=== PATIENT | female | born 1970 | race Caucasian/White ===

== ENCOUNTER 2017-11-11 02:24 | Emergency (ER) | payer MEDICARE ==
[2017-11-11 03:22] LABS: Appearance,Urine Clear (Clear); Bilirubin,Urine Negative (Negative); Blood,Urine Moderate (Negative); Color,Urine Colorless; Glucose,Urine (UA) Negative (Negative); Ketones,Urine Negative (Negative); Leukocyte Esterase,Urine Trace (Negative); Nitrite,Urine Negative (Negative); Protein,Urine Negative (Negative); RBC,Urine <1 /hpf (0-5); Specific Gravity,Urine 1.002 (1.001-1.035); Squamous Epithelial Cell,Urine <1 /hpf (0-4); Urobilinogen,Urine <2.0 mg/dL (<2.0); WBC,Urine 1 /hpf (0-5)
[2017-11-11 03:32] VITALS: BP 118/59; PULSE 85; RESP 16; TEMP 98.2
--- NOTE | 2017-11-11 03:47 | ED ---
General Adult HPI - General Chief complaint: Back Pain/Injury Stated complaint: Back Pain Time Seen by Provider: 11/11/17 02:30 Source: patient, family Mode of arrival: ambulatory Limitations: no limitations - History of Present Illness Initial comments: 47-year-old female patient presents to the emergency department today for evaluation of vaginal bleeding. Patient states that a few hours ago she felt a pain in her right lower back, immediately felt like she had to urinate, and went to the bathroom and noticed clots in the toilet. Patient states that she has been having intermittent spotting since 10/29/2017. Patient states that this is when her normal period was supposed to start however she did not have bleeding like normal. She states she has been having intermittent suprapubic cramping with this. Patient has had tubal ligation. Denies any chance of . She denies any constipation or diarrhea. Denies any nausea or vomiting. Denies any fevers or chills. She denies any dysuria, urinary frequency, urinary urgency. States that she has had kidney stones in the past but the pain felt different. She denies any current back pain. Patient denies any recent rash, shortness breath, chest pain, diarrhea, constipation, back pain , numbness, tingling, dizziness, weakness, headache, visual changes, or any other complaints. - Related Data Home Medications Medication Instructions Recorded Confirmed Acetaminophen [Tylenol] 325 mg PO Q4H PRN 08/01/15 11/11/17 Divalproex [Depakote] 500 mg PO BID 08/01/15 11/11/17 Naproxen 500 mg PO BID PRN 08/01/15 11/11/17 busPIRone HCl [Buspar] 5 mg PO TID 08/01/15 11/11/17 Omeprazole [PriLOSEC] 20 mg PO Q48H 08/02/15 11/11/17 diphenhydrAMINE [Benadryl] 50 mg PO QID PRN 08/02/15 11/11/17 Allergies Allergy/AdvReac Type Severity Reaction Status Date / Time codeine AdvReac Itching Verified 11/11/17 02:29 Penicillins AdvReac Nausea & Verified 11/11/17 02:29 Vomiting Review of Systems ROS Statement: Those systems with pertinent positive or pertinent negative responses have been documented in the HPI. ROS Other: All systems not noted in ROS Statement are negative. Past Medical History Past Medical History: COPD, GERD/Reflux, Hypertension, Neurologic Disorder, Osteoarthritis (OA), Seizure Disorder Additional Past Medical History / Comment(s): suicidal tendencies, organic brain syndrome, memory loss History of Any Multi-Drug Resistant Organisms: None Reported Past Surgical History: Orthopedic Surgery, Tonsillectomy Additional Past Surgical History / Comment(s): bilat knee arthroscopy 2009 and 2010 Past Anesthesia/Blood Transfusion Reactions: No Reported Reaction Past Psychological History: Anxiety, Bipolar, Depression, Panic Disorder Smoking Status: Current every day smoker Past Alcohol Use History: Abuse Past Drug Use History: None Reported - Past Family History Mother Family Medical History: Coronary Artery Disease (CAD) Father Family Medical History: Cancer General Exam Limitations: no limitations General appearance: alert, in no apparent distress, other (This is a well- developed, well-nourished adult female patient in no acute distress. Vital signs upon presentation are temperature 97.3F, pulse 99, respirations 20, blood pressure 135/86, pulse ox 98% on room air.) Eye exam: Present: normal appearance, PERRL, EOMI. Absent: scleral icterus, conjunctival injection, periorbital swelling ENT exam: Present: normal exam, normal oropharynx, mucous membranes moist Respiratory exam: Present: normal lung sounds bilaterally. Absent: respiratory distress, wheezes, rales, rhonchi, stridor Cardiovascular Exam: Present: regular rate, normal rhythm, normal heart sounds. Absent: systolic murmur, diastolic murmur, rubs, gallop, clicks GI/Abdominal exam: Present: soft, normal bowel sounds. Absent: distended, tenderness, guarding, rebound, rigid External exam: Present: normal external exam Speculum exam: Present: vaginal bleeding (Slight vaginal bleeding). Absent: erythema, tissue, laceration By manual exam: Present: normal by manual exam Back exam: Present: normal inspection Neurological exam: Present: alert, oriented X3, CN II-XII intact Psychiatric exam: Present: normal affect, normal mood Skin exam: Present: warm, dry, intact, normal color. Absent: rash Course Vital Signs 11/11/17 11/11/17 02:24 03:30 Temperature 97.3 F L 98.2 F Pulse Rate 99 85 Respiratory 20 16 Rate Blood Pressure 135/86 118/59 O2 Sat by Pulse 98 96 Oximetry Medical Decision Making - Medical Decision Making 47-year-old female patient, premenopausal presents to the emergency department today for complaints of vaginal spotting and lower back pain. Physical examination is unremarkable. Pelvic examination does reveal slight vaginal bleeding. Bimanual exam is normal. Urinalysis shows no evidence of infection. HCG is negative. Did discuss findings and results with the patient. She is instructed to follow-up with her primary care physician for recheck in 1-2 days. She does to discuss possible ultrasound or further testing to rule out menopause versus other etiologies. Return parameters were discussed in detail. She verbalizes understanding and agrees with this plan. - Lab Data Lab Results 11/11/17 11/11/17 Range/Units 03:08 03:08 Urine Color Colorless Urine Appearance Clear (Clear) Urine pH 5.0 (5.0-8.0) Ur Specific [place] 1.002 (1.001-1.035) Urine Protein Negative (Negative) Urine Glucose (UA) Negative (Negative) Urine Ketones Negative (Negative) Urine Blood Moderate H (Negative) Urine Nitrite Negative (Negative) Urine Bilirubin Negative (Negative) Urine Urobilinogen <2.0 (<2.0) mg/dL Ur Leukocyte Esterase Trace H (Negative) Urine RBC <1 (0-5) /hpf Urine WBC 1 (0-5) /hpf Ur Squamous Epith Cells <1 (0-4) /hpf Urine HCG, Qual Not Detected (Not Detectd) Disposition Clinical Impression: Dysfunctional uterine bleeding Disposition: HOME SELF-CARE Condition: Good Instructions: Dysfunctional Uterine Bleeding (ED) Additional Instructions: Follow-up with her primary care physician for recheck as soon as possible, discuss pelvic ultrasound. Return here immediately for any new, worsening, or concerning symptoms per Is patient prescribed a controlled substance at d/c from ED?: No Referrals: Gigi Garcia MD [Primary Care Provider] - 1-2 days Time of Disposition: 03:47
== END 2017-11-11 04:06 | disposition home or self-care (01) ==
LOC: EC 02:24
DX: N93.8 Other specified abnormal uterine and vaginal bleeding (principal); M54.5 Low back pain; K21.9 Gastro-esophageal reflux disease without esophagitis; M19.90 Unspecified osteoarthritis, unspecified site; G40.909 Epilepsy, unspecified, not intractable, without status epilepticus; F31.9 Bipolar disorder, unspecified; F41.9 Anxiety disorder, unspecified; F17.200 Nicotine dependence, unspecified, uncomplicated; Z79.899 Other long term (current) drug therapy; Z88.0 Allergy status to penicillin; Z88.5 Allergy status to narcotic agent
CPT/HCPCS: 81001; 81025; 99283

== ENCOUNTER 2019-08-31 11:29 | Observation (INO) | payer MEDICARE ==
[2019-08-31] MEDS ORDERED: NITROGLYCERIN SL TABS 0.4 MG TAB SUBLINGUAL STA ×3 (11:40)
[2019-08-31] MEDS ORDERED: ASPIRIN 81 MG PO STA (11:40)
--- NOTE | 2019-08-31 11:47 | ED ---
General Adult HPI - General Chief complaint: Chest Pain Stated complaint: Chest Pain Time Seen by Provider: 08/31/19 11:32 Source: patient, EMS, RN notes reviewed Mode of arrival: EMS Limitations: no limitations - History of Present Illness Initial comments: Patient is a pleasant 49-year-old female presenting to the emergency Department with complaints of chest discomfort. Onset of symptoms was yesterday. Discomfort is currently rated 7/10. Discomfort is described as pressure in her chest without radiation. Patient does have associated sweating. Patient states she does have some short of breath however this is chronic and unchanged and related to her smoking. No leg pain or leg swelling. Patient admits to drinking captain and cokes this morning. Patient states she has had similar symptoms previously however has never gone to the doctor before. Patient denies ever having any history of heart disease to me. - Related Data Home Medications Medication Instructions Recorded Confirmed No Known Home Medications 08/31/19 08/31/19 Allergies Allergy/AdvReac Type Severity Reaction Status Date / Time codeine AdvReac Itching Verified 08/31/19 13:36 Penicillins AdvReac Nausea & Verified 08/31/19 13:36 Vomiting Review of Systems ROS Statement: Those systems with pertinent positive or pertinent negative responses have been documented in the HPI. ROS Other: All systems not noted in ROS Statement are negative. Constitutional: Denies: fever Eyes: Denies: eye pain ENT: Denies: ear pain Respiratory: Reports: as per HPI. Denies: cough Cardiovascular: Reports: chest pain Endocrine: Denies: fatigue Gastrointestinal: Denies: abdominal pain Genitourinary: Denies: dysuria Musculoskeletal: Denies: back pain Skin: Denies: rash Neurological: Denies: weakness Past Medical History Past Medical History: COPD, GERD/Reflux, Hypertension, Neurologic Disorder, Osteoarthritis (OA), Seizure Disorder Additional Past Medical History / Comment(s): suicidal tendencies, organic brain syndrome, memory loss History of Any Multi-Drug Resistant Organisms: None Reported Past Surgical History: Orthopedic Surgery, Tonsillectomy Additional Past Surgical History / Comment(s): bilat knee arthroscopy 2009 and 2010 Past Anesthesia/Blood Transfusion Reactions: No Reported Reaction Past Psychological History: Anxiety, Bipolar, Depression, Panic Disorder Smoking Status: Current every day smoker Past Alcohol Use History: Abuse Past Drug Use History: None Reported - Past Family History Mother Family Medical History: Coronary Artery Disease (CAD) Father Family Medical History: Cancer General Exam Limitations: no limitations General appearance: alert, in no apparent distress, anxious Head exam: Present: normocephalic Eye exam: Present: normal appearance, PERRL ENT exam: Present: normal oropharynx Neck exam: Present: normal inspection Respiratory exam: Present: normal lung sounds bilaterally, chest wall tenderness Cardiovascular Exam: Present: regular rate, normal rhythm Expanded Peripheral pulses: 2+: Radial (R), Radial (L), Dorsalis Pedis (R), Dorsalis Pedis (L) GI/Abdominal exam: Present: soft. Absent: tenderness Extremities exam: Present: normal inspection. Absent: pedal edema, calf tenderness Neurological exam: Present: alert Psychiatric exam: Present: normal affect, normal mood Skin exam: Present: normal color Course Vital Signs 08/31/19 11:31 Temperature 98 F Pulse Rate 74 Respiratory 20 Rate Blood Pressure 155/80 O2 Sat by Pulse 99 Oximetry EKG Findings - EKG Comments: EKG Findings:: Normal sinus rhythm at 81. MN 140. QRS 84. QT 412. QTC 478. Normal axis. Normal QRS. No acute ST change. Medical Decision Making - Medical Decision Making Patient reevaluated and resting comfortably in bed. Symptoms have improved. Patient updated on results and plan. Case discussed with Dr. Xavier, who will admit covered for hospital call. - Lab Data Result diagrams: 08/31/19 11:37 08/31/19 11:37 Lab Results 08/31/19 08/31/19 08/31/19 Range/Units 11:37 11:37 11:37 WBC 7.1 (3.8-10.6) k/uL RBC 4.26 (3.80-5.40) m/uL Hgb 11.7 (11.4-16.0) gm/dL Hct 36.2 (34.0-46.0) % MCV 85.0 (80.0-100.0) fL MCH 27.5 (25.0-35.0) pg MCHC 32.4 (31.0-37.0) g/dL RDW 20.0 H (11.5-15.5) % Plt Count 317 (150-450) k/uL Neutrophils % 48 % Lymphocytes % 45 % Monocytes % 4 % Eosinophils % 1 % Basophils % 1 % Neutrophils # 3.4 (1.3-7.7) k/uL Lymphocytes # 3.2 (1.0-4.8) k/uL Monocytes # 0.3 (0-1.0) k/uL Eosinophils # 0.1 (0-0.7) k/uL Basophils # 0.0 (0-0.2) k/uL Anisocytosis Slight Microcytosis Slight PT 9.6 (9.0-12.0) sec INR 0.9 (<1.2) APTT 25.1 (22.0-30.0) sec D-Dimer 0.31 (<0.60) mg/L FEU Sodium 142 (137-145) mmol/L Potassium 4.1 (3.5-5.1) mmol/L Chloride 108 H (98-107) mmol/L Carbon Dioxide 26 (22-30) mmol/L Anion Gap 8 mmol/L BUN 13 (7-17) mg/dL Creatinine 0.61 (0.52-1.04) mg/dL Est GFR (CKD-EPI)AfAm >90 (>60 ml/min/1.73 sqM) Est GFR (CKD-EPI)NonAf >90 (>60 ml/min/1.73 sqM) Glucose 91 (74-99) mg/dL Calcium 8.6 (8.4-10.2) mg/dL Magnesium 2.2 (1.6-2.3) mg/dL Total Bilirubin 0.4 (0.2-1.3) mg/dL AST 33 (14-36) U/L ALT 19 (4-34) U/L Alkaline Phosphatase 74 (38-126) U/L Troponin I (0.000-0.034) ng/mL Total Protein 7.3 (6.3-8.2) g/dL Albumin 4.4 (3.5-5.0) g/dL Serum Alcohol 362 H* mg/dL 08/31/19 Range/Units 11:37 WBC (3.8-10.6) k/uL RBC (3.80-5.40) m/uL Hgb (11.4-16.0) gm/dL Hct (34.0-46.0) % MCV (80.0-100.0) fL MCH (25.0-35.0) pg MCHC (31.0-37.0) g/dL RDW (11.5-15.5) % Plt Count (150-450) k/uL Neutrophils % % Lymphocytes % % Monocytes % % Eosinophils % % Basophils % % Neutrophils # (1.3-7.7) k/uL Lymphocytes # (1.0-4.8) k/uL Monocytes # (0-1.0) k/uL Eosinophils # (0-0.7) k/uL Basophils # (0-0.2) k/uL Anisocytosis Microcytosis PT (9.0-12.0) sec INR (<1.2) APTT (22.0-30.0) sec D-Dimer (<0.60) mg/L FEU Sodium (137-145) mmol/L Potassium (3.5-5.1) mmol/L Chloride (98-107) mmol/L Carbon Dioxide (22-30) mmol/L Anion Gap mmol/L BUN (7-17) mg/dL Creatinine (0.52-1.04) mg/dL Est GFR (CKD-EPI)AfAm (>60 ml/min/1.73 sqM) Est GFR (CKD-EPI)NonAf (>60 ml/min/1.73 sqM) Glucose (74-99) mg/dL Calcium (8.4-10.2) mg/dL Magnesium (1.6-2.3) mg/dL Total Bilirubin (0.2-1.3) mg/dL AST (14-36) U/L ALT (4-34) U/L Alkaline Phosphatase (38-126) U/L Troponin I <0.012 (0.000-0.034) ng/mL Total Protein (6.3-8.2) g/dL Albumin (3.5-5.0) g/dL Serum Alcohol mg/dL Disposition Clinical Impression: Chest pain, Alcohol intoxication Disposition: ADMITTED IP TO THIS HOSP Is patient prescribed a controlled substance at d/c from ED?: No Decision Time: 13:18
[2019-08-31 12:00] LABS: Anisocytosis Slight; Basophils % (A) 1 %; Eosinophils # (A) 0.1 k/uL (0-0.7); Eosinophils % (A) 1 %; HCT 36.2 % (34.0-46.0); HGB 11.7 gm/dL (11.4-16.0); Lymphocytes # (A) 3.2 k/uL (1.0-4.8); Lymphocytes % (A) 45 %; MCH 27.5 pg (25.0-35.0); MCHC 32.4 g/dL (31.0-37.0); Mean Platelet Volume 6.6; Microcytosis Slight; Monocytes # (A) 0.3 k/uL (0-1.0); Monocytes % (A) 4 %; Neutrophils # (A) 3.4 k/uL (1.3-7.7); Neutrophils % (A) 48 %; Platelet Count 317 k/uL (150-450); RBC 4.26 m/uL (3.80-5.40); WBC 7.1 k/uL (3.8-10.6)
[2019-08-31 12:11] LABS: ALT 19 U/L (4-34); AST 33 U/L (14-36); African American GFR (CKD) >90 (>60 ml/min/1.73 sqM); Albumin 4.4 g/dL (3.5-5.0); Alkaline Phosphatase 74 U/L (38-126); Anion Gap 8 mmol/L; Blood Urea Nitrogen 13 mg/dL (7-17); Calcium 8.6 mg/dL (8.4-10.2); Carbon Dioxide 26 mmol/L (22-30); Chloride 108 mmol/L (98-107); Glucose 91 mg/dL (74-99); Magnesium 2.2 mg/dL (1.6-2.3); Non-African American GFR(CKD) >90 (>60 ml/min/1.73 sqM); Potassium 4.1 mmol/L (3.5-5.1); Sodium 142 mmol/L (137-145); Total Bilirubin 0.4 mg/dL (0.2-1.3); Total Protein 7.3 g/dL (6.3-8.2)
[2019-08-31 12:17] LABS: D-Dimer 0.31 mg/L FEU (<0.60); INR 0.9 (<1.2); Partial Thromboplastin Time 25.1 sec (22.0-30.0); Prothrombin Time 9.6 sec (9.0-12.0)
--- NOTE | 2019-08-31 12:20 | XR ---
EXAMINATION TYPE: XR chest 2V DATE OF EXAM: 08/31/2019 COMPARISON: NONE TECHNIQUE: PA and lateral views submitted. HISTORY: Chest pain FINDINGS: The lungs are clear and there is no pneumothorax, pleural effusion, or focal pneumonia. Heart size is normal. No overt failure. Biapical pleural thickening. Nipple shadow is seen overlying the right l ower lung field. IMPRESSION: 1. No acute process.
[2019-08-31 12:29] LABS: Alcohol 362 mg/dL
[2019-08-31] MEDS ORDERED: NITROGLYCERIN SL TABS 0.4 MG TAB SUBLINGUAL PRN (13:18)
[2019-08-31] MEDS ORDERED: NICOTINE 21MG/24HR PATCH TRANSDERM STA (15:34)
[2019-08-31] MEDS ORDERED: THIAMINE 100 MG/ML 2 ML VIAL IM STA (15:34)
[2019-08-31] MEDS ORDERED: LORazepam 2 MG/ML INJ IV PRN ×3 (15:34)
--- NOTE | 2019-08-31 16:51 | P.HPIM ---
History of Present Illness Patient is a pleasant 49-year-old female came in with compensative chest discomfort and epigastric abdominal discomfort predominantly at the chest radiating to the back no associated diaphoresis, complaining of nausea denied any vomiting denied any significant shortness of breath at the diaphoresis associated with the pain had pain is nonpleuritic. Her chest pain started when she was drinking patient drinks on daily basis about one fifth of hard liquor. Patient will be sober for few days and started drinking again. Patient blood alcohol level was highly elevated. Patient does have withdrawals if she doesn't drink alcohol and willing to quit alcohol does smoke 1 pack of cigarettes per day. I was requested to admit patient to rule out a acute coronary syndromes. EKG shows sinus rhythm without any acute ST-T wave changes troponin is negative. Her chest pain is sharp moderate severity radiates to the back patient does have tenderness in the epigastric area. Patient is able to eat a sandwich without any increased abdominal pain when I was evaluating the patient Review of Systems REVIEW OF SYSTEMS: CONSTITUTIONAL: No fever, no malaise, no fatigue. HEENT: No recent visual problems or hearing problems. Denied any sore throat. CARDIOVASCULAR: No orthopnea, PND, no palpitations, no syncope. PULMONARY: No shortness of breath, no cough, no hemoptysis. GASTROINTESTINAL: No diarrhea. NEUROLOGICAL: No headaches, no weakness, no numbness. HEMATOLOGICAL: Denies any bleeding or petechiae. GENITOURINARY: Denies any burning micturition, frequency, or urgency. MUSCULOSKELETAL/RHEUMATOLOGICAL: Denies any joint pain, swelling, or any muscle pain. ENDOCRINE: Denies any polyuria or polydipsia. The rest of the 14-point review of systems is negative. Past Medical History Past Medical History: COPD, GERD/Reflux, Hypertension, Neurologic Disorder, Osteoarthritis (OA), Seizure Disorder Additional Past Medical History / Comment(s): suicidal tendencies, organic brain syndrome, memory loss History of Any Multi-Drug Resistant Organisms: None Reported Past Surgical History: Orthopedic Surgery, Tonsillectomy Additional Past Surgical History / Comment(s): bilat knee arthroscopy 2009 and 2010 Past Anesthesia/Blood Transfusion Reactions: No Reported Reaction Past Psychological History: Anxiety, Bipolar, Depression, Panic Disorder Smoking Status: Current every day smoker Past Alcohol Use History: Abuse Past Drug Use History: None Reported - Past Family History Mother Family Medical History: Coronary Artery Disease (CAD) Father Family Medical History: Cancer Medications and Allergies Home Medications Medication Instructions Recorded Confirmed Type No Known Home Medications 08/31/19 08/31/19 History Allergies Allergy/AdvReac Type Severity Reaction Status Date / Time codeine AdvReac Itching Verified 08/31/19 13:36 Penicillins AdvReac Nausea & Verified 08/31/19 13:36 Vomiting Physical Exam Vitals: Vital Signs Temp Pulse Resp BP Pulse Ox 08/31/19 13:30 78 18 109/67 98 08/31/19 13:00 68 17 111/64 08/31/19 11:31 98 F 74 20 155/80 99 Intake and Output 08/31/19 08/31/19 08/31/19 06:59 14:59 22:59 Other: Weight 71.214 kg PHYSICAL EXAMINATION: GENERAL: The patient is alert and oriented x3, not in any acute distress. Well developed, well nourished. HEENT: Pupils are round and equally reacting to light. EOMI. No scleral icterus. No conjunctival pallor. Normocephalic, atraumatic. No pharyngeal erythema. No thyromegaly. CARDIOVASCULAR: S1 and S2 present. No murmurs, rubs, or gallops. PULMONARY: Chest is clear to auscultation, no wheezing or crackles. ABDOMEN: Soft, patient does have epigastric abdominal tenderness, nondistended, normoactive bowel sounds. No palpable organomegaly. MUSCULOSKELETAL: No joint swelling or deformity. EXTREMITIES: No cyanosis, clubbing, or pedal edema. NEUROLOGICAL: Gross neurological examination did not reveal any focal deficits. SKIN: No rashes. Results CBC & Chem 7: 08/31/19 11:37 08/31/19 11:37 Labs: Abnormal Lab Results - Last 24 Hours (Table) 08/31/19 08/31/19 Range/Units 11:37 11:37 RDW 20.0 H (11.5-15.5) % Chloride 108 H (98-107) mmol/L Serum Alcohol 362 H* mg/dL Assessment and Plan Plan: -Chest pain/abdominal pain: Patient has atypical chest and patient of abdominal pain is most related to gastritis will also rule out pancreatitis will obtain a lipase level as patient is comfortable eating a sandwich will not make her nothing by mouth patient will be started on Protonix continued on IV fluids. We will also rule out a acute coronary syndromes although my suspicion is low for any acute coronary event. -Alcohol abuse: Counseling was provided patient will be monitored for any withdrawals and patient will be started on Ativan CIWA protocol. Patient will be on thiamine multivitamin supplementation as well -Nicotine abuse patient smokes about one pack of cigarettes per day nicotine patch will be ordered. -DVT prophylaxis early ambulation
[2019-08-31] MEDS: NITROGLYCERIN OINT 1 INCH/GM PACKET TOPICAL SCH ×2 (18:01→23:40)
[2019-08-31] MEDS: THIAMINE 100 MG TAB PO SCH (18:01)
[2019-08-31 23:36] VITALS: RESP 18
[2019-08-31] MEDS: PANTOPRAZOLE 40 MG/10 ML VIAL IVP SCH (23:40)
[2019-09-01] MEDS: THIAMINE 100 MG TAB PO SCH (07:09)
[2019-09-01] MEDS: NITROGLYCERIN OINT 1 INCH/GM PACKET TOPICAL SCH ×2 (07:09→11:10)
[2019-09-01] MEDS: PANTOPRAZOLE 40 MG/10 ML VIAL IVP SCH (08:39)
[2019-09-01 08:58] LABS: Cholesterol 151 mg/dL (<200); HDL Cholesterol 54 mg/dL (40-60); LDL Cholesterol,Calculated 79 mg/dL (0-99); Triglycerides 90 mg/dL (<150)
[2019-09-01] MEDS ORDERED: ASPIRIN 325 MG TAB PO SCH (09:00)
--- NOTE | 2019-09-01 11:42 | P.CRDCN ---
History of Present Illness Consult date: 09/01/19 Requesting physician: Simone Xavier Reason for Consult (text): chest pain Chief complaint: chest pain History of present illness: This a pleasant 49-year-old female patient with history of alcohol abuse. The patient states she will go a few days to weeks without drinking and then drink quite heavily for a few days at a time. She does not recall the chest pain that prompted her to call EMS as she had consumed about 2 half gallons of 2 M in the 48 hours prior to presentation. According to the ER no patient presented yesterday with complaints of chest discomfort that began the day before, rated 7 out of 10 described as a pressure without radiation and some associated sweating as well as complaints of shortness of breath that she felt was related to her smoking. According to the H&P dictated by the admitting physician patient complained of chest and epigastric discomfort radiating to the back with no diaphoresis but complaints of nausea with no vomiting and no shortness of br eath. The patient does not recall when the pain started or what it felt like. She does verbalize a history of hypertension but says this feels "on and off "and feels it's related to her drinking. She denies history of diabetes or hyperlipidemia. She is a current 1 pack a day smoker. She has a significant family history of CAD with her mother who had bypass surgery and at the age of 47. EKG on admission showed normal sinus rhythm with no ST-T wave abnormalities. Chest x-ray showed no acute process. Labs show normal white count, normal d-dimer, potassium 4.1, BUN 13, creatinine 0.61, normal LFTs, normal lipase, troponin negative 3 and a serum alcohol level of 362. Upon ex amination, patient is resting comfortably in bed with her daughter at the bedside. Denies complaints of chest discomfort, palpitations, shortness of breath, dizziness, lightheadedness, edema, orthopnea or PND. Her only complaint is feeling tired. Past Medical History Past Medical History: COPD, GERD/Reflux, Hypertension, Neurologic Disorder, Osteoarthritis (OA), Seizure Disorder Additional Past Medical History / Comment(s): suicidal tendencies, organic brain syndrome, memory loss History of Any Multi-Drug Resistant Organisms: None Reported Past Surgical History: Orthopedic Surgery, Tonsillectomy Additional Past Surgical History / Comment(s): bilat knee arthroscopy 2009 and 2010 Past Anesthesia/Blood Transfusion Reactions: No Reported Reaction Past Psychological History: Anxiety, Bipolar, Depression, Panic Disorder Smoking Status: Current every day smoker Past Alcohol Use History: Abuse Past Drug Use History: None Reported - Past Family History Mother Family Medical History: Coronary Artery Disease (CAD) Father Family Medical History: Cancer Medications and Allergies Home Medications Medication Instructions Recorded Confirmed Type Omeprazole [PriLOSEC] 40 mg PO AC-BRKFST #14 capsule.dr 09/01/19 Rx Thiamine [Vitamin B-1] 100 mg PO BID-W/MEALS #30 tab 09/01/19 Rx chlordiazePOXIDE HCl [Librium] 10 mg PO QID PRN 3 Days #12 capsule 09/01/19 Rx Allergies Allergy/AdvReac Type Severity Reaction Status Date / Time codeine AdvReac Itching Verified 08/31/19 13:36 Penicillins AdvReac Nausea & Verified 08/31/19 13:36 Vomiting Physical Exam Vitals: Vital Signs Temp Pulse Pulse Resp BP BP Pulse Ox 09/01/19 04:00 98.2 F 63 18 141/90 94 L 08/31/19 23:35 98.1 F 72 18 156/88 96 08/31/19 23:31 78 16 08/31/19 20:00 98.1 F 72 16 157/95 96 08/31/19 16:02 98.4 F 78 18 151/81 95 08/31/19 13:30 78 18 109/67 98 08/31/19 13:00 68 17 111/64 08/31/19 11:31 98 F 74 20 155/80 99 Intake and Output 08/31/19 09/01/19 09/01/19 22:59 06:59 14:59 Intake Total 480 Balance 480 Intake: Oral 480 Other: Voiding Method Toilet # Voids 2 Weight 71.214 kg 64.9 kg PHYSICAL EXAMINATION: HEENT: Head is atraumatic, normocephalic. Pupils equal, round. Neck is supple. There is no elevated jugular venous pressure. No carotid bruit auscultated HEART EXAMINATION: Heart sounds regular, S1 and S2 normal. No murmur or gallop heard. CHEST EXAMINATION: Lungs are clear to auscultation. No chest wall tenderness is noted on palpation or with deep breathing. ABDOMEN: Soft, nontender. Bowel sounds are heard. No organomegaly noted. EXTREMITIES: 2+ peripheral pulses with no evidence of peripheral edema and no calf tenderness noted. NEUROLOGIC patient is awake, alert and oriented x3. . Results 08/31/19 11:37 08/31/19 11:37 Cardiac Enzymes 08/31/19 08/31/19 08/31/19 Range/Units 00:00 11:37 11:37 AST 33 (14-36) U/L Troponin I <0.012 <0.012 (0.000-0.034) ng/mL 08/31/19 Range/Units 17:11 AST (14-36) U/L Troponin I <0.012 (0.000-0.034) ng/mL Coagulation 08/31/19 Range/Units 11:37 PT 9.6 (9.0-12.0) sec APTT 25.1 (22.0-30.0) sec CBC 08/31/19 Range/Units 11:37 WBC 7.1 (3.8-10.6) k/uL RBC 4.26 (3.80-5.40) m/uL Hgb 11.7 (11.4-16.0) gm/dL Hct 36.2 (34.0-46.0) % Plt Count 317 (150-450) k/uL Comprehensive Metabolic Panel 08/31/19 Range/Units 11:37 Sodium 142 (137-145) mmol/L Potassium 4.1 (3.5-5.1) mmol/L Chloride 108 H (98-107) mmol/L Carbon Dioxide 26 (22-30) mmol/L BUN 13 (7-17) mg/dL Creatinine 0.61 (0.52-1.04) mg/dL Glucose 91 (74-99) mg/dL Calcium 8.6 (8.4-10.2) mg/dL AST 33 (14-36) U/L ALT 19 (4-34) U/L Alkaline Phosphatase 74 (38-126) U/L Total Protein 7.3 (6.3-8.2) g/dL Albumin 4.4 (3.5-5.0) g/dL Current Medications Generic Name Dose Route Start Last Admin Trade Name Freq PRN Reason Stop Dose Admin Aspirin 325 mg 09/01/19 09:00 Aspirin PO DAILY ROSIBEL Lorazepam 1 mg 08/31/19 15:34 Ativan IV Q2HR PRN CIWA 8 or 9 Lorazepam 1 mg 08/31/19 15:34 Ativan IV Q1HR PRN CIWA 10 to 15 Lorazepam 2 mg 08/31/19 15:34 Ativan IV 09/02/19 15:35 Q10M PRN CIWA 16 or higher Nitroglycerin 0.4 mg 08/31/19 13:18 Nitrostat SUBLINGUAL Q5M PRN Chest Pain Nitroglycerin 1 inch 08/31/19 18:00 09/01/19 07:09 Nitro-Bid Oint TOPICAL Not Given Q6HR ROSIBEL Pantoprazole Sodium 40 mg 08/31/19 21:00 08/31/19 23:40 Protonix IVP Not Given BID ROSIBEL Thiamine HCl 100 mg 08/31/19 17:30 09/01/19 07:09 Vitamin B-1 PO Not Given BID-W/MEALS ROSIBEL Intake and Output 08/31/19 09/01/19 09/01/19 22:59 06:59 14:59 Intake Total 480 Balance 480 Intake: Oral 480 Other: Voiding Method Toilet # Voids 2 Weight 71.214 kg 64.9 kg 08/31/19 11:37 08/31/19 11:37 EKG Interpretations (text) Normal sinus rhythm Assessment and Plan Assessment: #1 chest pain, patient unable to recall but seems to be atypical based on documentation in the ED summary and H&P, troponins negative 3 #2 family history of premature CAD #3 alcohol abuse #4 hypertension, could be related to alcohol withdrawal #5 nicotine dependence Plan: From drafting supervisor perspective, we'll obtain a 2-D echo with Doppler to assess cardiac structure and function. Discussed with the patient importance of ab staining from alcohol. If there are no significant abnormalities on echocardiogram the patient may be discharged home and we will follow-up with her as an outpatient for stress testing. LOTTERY MANAGER note has been reviewed, I agree with a documented findings and plan of care. Patient was seen and examined.
--- NOTE | 2019-09-01 12:39 | P.DS ---
Providers Date of admission: 08/31/19 13:18 Attending physician: Simone Xavier Consults: 08/31/19 15:41 Consult Physician Urgent Consulting Provider: Hasmukh Salvador Consult Reason/Comments: cp Do you want consulting provider notified?: Yes Primary care physician: Stated None Hospital Course: 49-year-old female came in with compensative chest discomfort and epigastric abdominal discomfort predominantly at the chest radiating to the back no associated diaphoresis, complaining of nausea denied any vomiting denied any significant shortness of breath at the diaphoresis associated with the pain had pain is nonpleuritic. Her chest pain started when she was drinking patient drinks on daily basis about one fifth of hard liquor. Patient will be sober for few days and started drinking again. Patient blood alcohol level was highly elevated. Patient does have withdrawals if she doesn't drink alcohol and willing to quit alcohol does smoke 1 pack of cigarettes per day. I was requested to admit patient to rule out a acute coronary syndromes. EKG shows sinus rhythm without any acute ST-T wave changes troponin is negative. Her chest pain is sharp moderate severity radiates to the back patient does have tenderness in the epigastric area. 09/01/2019 Patient was a valid by cardiology recommending an echocardiogram if there are no significant wall motion abnormalities and if EF is normal patient will be discharged today. Patient probably has alcoholic gastritis symptoms of which completely resolved at this time patient will be discharged on 14 days of Prilosec and will get the renal social worker to discuss resources for alcohol rehabilitation. Patient will be discharged today.anticoagulation to is being discharged on as-needed basis Librium for alcohol withdrawal.no withdrawals so far PHYSICAL EXAMINATION: GENERAL: The patient is alert and oriented x3, not in any acute distress. Well developed, well nourished. HEENT: Pupils are round and equally reacting to light. EOMI. No scleral icterus. No conjunctival pallor. Normocephalic, atraumatic. No pharyngeal erythema. No thyromegaly. CARDIOVASCULAR: S1 and S2 present. No murmurs, rubs, or gallops. PULMONARY: Chest is clear to auscultation, no wheezing or crackles. ABDOMEN: Soft, nontender, nondistended, normoactive bowel sounds. No palpable organomegaly. MUSCULOSKELETAL: No joint swelling or deformity. EXTREMITIES: No cyanosis, clubbing, or pedal edema. NEUROLOGICAL: Gross neurological examination did not reveal any focal deficits. SKIN: No rashes. Assessment and Plan Plan: -Chest pain/abdominal pain: Patient has atypical chest and patient of abdominal pain is most related to gastritis . Ruled out acute coronary syndromes echocardiogram as mentioned above -Alcohol abuse: Counseling was provided patient will be monitored for any withdrawals and so far no withdrawals but patient wanted to go home because of which am discharging her on 4 days of Librium on as-needed basis -Nicotine abuse patient smokes about one pack of cigarettes per day nicotine patch will be ordered. -DVT prophylaxis early ambulation Plan - Discharge Summary Discharge Rx Participant: No New Discharge Prescriptions: New chlordiazePOXIDE HCl [Librium] 10 mg PO QID PRN 3 Days #12 capsule PRN Reason: Alcohol Withdrawal Omeprazole [PriLOSEC] 40 mg PO AC-BRKFST #14 capsule. Thiamine [Vitamin B-1] 100 mg PO BID-W/MEALS #30 tab Discharge Medication List Omeprazole [PriLOSEC] 40 mg PO AC-BRKFST #14 capsule. 09/01/19 [Rx] Thiamine [Vitamin B-1] 100 mg PO BID-W/MEALS #30 tab 09/01/19 [Rx] chlordiazePOXIDE HCl [Librium] 10 mg PO QID PRN 3 Days #12 capsule 09/01/19 [Rx] Follow up Appointment(s)/Referral(s): Gigi Garcia MD [STAFF PHYSICIAN] - 09/06/19 1:40 pm (Please bring in photo ID, insurance card and a list of your current medications to follow up appointment. ) Hasmukh Salvador MD [STAFF PHYSICIAN] - 2 Weeks Patient Instructions/Handouts: Chest Pain (DC), How to Stop Smoking (DC), Abuse of Alcohol (DC) Discharge Disposition: HOME SELF-CARE
[2019-09-01 15:35] VITALS: BP 161/83; PULSE 70; TEMP 98.2
--- NOTE | 2019-09-01 16:00 | ECHOF ---
Referral Reason:chest pain MEASUREMENTS -------- HEIGHT: 165.1 cm WEIGHT: 64.9 kg BP: 141/90 IVSd: 1.4 cm (0.6 - 1.1) LVIDd: 4.1 cm (3.9 - 5.3) LVPWd: 1.3 cm (0.6 - 1.1) EDV(Teich): 73 ml IVSs: 2.0 cm LVIDs: 2.4 cm LVPWs: 1.9 cm %IVS Thck: 41 % ESV(Teich): 20 ml EF(Teich): 73 % %FS: 41 % SV(Teich): 53 ml RVIDd: 3.9 cm (< 3.3) RA Diam: 4.8 cm LALs A4C: 4.5 cm LAAs A4C: 15.5 cm LAESV A-L A4C: 46 ml LAESV MOD A4C: 32 ml LALs A2C: 5.7 cm LAAs A2C: 21.6 cm LAESV A-L A2C: 70 ml LAESV MOD A2C: 67 ml LAESV(A-L): 63 ml LAESV Index (A-L): 36.83 ml/m Ao Diam: 3.7 cm (2.0 - 3.7) AV Cusp: 2.1 cm (1.5 - 2.6) EPSS: 0.6 cm MV E Pedro: 0.91 m/s MV DecT: 184 ms MV Dec [place]: 5.0 m/s MV A Pedro: 0.76 m/s MV E/A Ratio: 1.19 MV PHT: 53 ms TR Vmax: 1.85 m/s TR maxP.75 mmHg RAP: 5.00 mmHg RVSP: 18.75 mmHg MV EF SLOPE: 106.52 mm/s (70 - 150) MV EXCURSION: 16.49 mm (> 18.000) FINDINGS -------- Sinus rhythm. This was a technically adequate study. The left ventricular size is normal. There is mild concentric left ventricular hypertrophy. Overa ll left ventricular systolic function is normal with, an EF between 55 - 60 %. The diastolic fillin g pattern is normal for the age of the patient 8.98. The right ventricle is mild to moderately enlarged. LA is moderately dilated 34-39 ml/m2 The right atrium is mildly enlarged. Interatrial and interventricular septum intact. The aortic valve is trileaflet, and appears structurally normal. No aortic stenosis or regurgitation. The mitral valve is normal. Mild mitral regurgitation is present. Mild tricuspid regurgitation present. There is no evidence of pulmonary hypertension. The right v entricular systolic pressure, as measured by Doppler, is 18.75mmHg. There is no pulmonic regurgitation present. There is no pericardial effusion. CONCLUSIONS -------- 1. Sinus rhythm. 2. This was a technically adequate study. 3. The left ventricular size is normal. 4. There is mild concentric left ventricular hypertrophy. 5. Overall left ventricular systolic function is normal with, an EF between 55 - 60 %. 6. The diastolic filling pattern is normal for the age of the patient 8.98 7. The right ventricle is mild to moderately enlarged. 8. LA is moderately dilated 34-39 ml/m2 9. The right atrium is mildly enlarged. 10. The aortic valve is trileaflet, and appears structurally normal. No aortic stenosis or regurgitat ion. 11. Mild mitral regurgitation is present. 12. Mild tricuspid regurgitation present. 13. There is no evidence of pulmonary hypertension. 14. There is no pulmonic regurgitation present. 15. There is no pericardial effusion. MANAGER RISK MANAGEMENT: Carmen Agiullon RDCS
== END 2019-09-01 16:29 | disposition home or self-care (01) ==
LOC: EC 11:29 → 1SOBS 13:18 → 3SCARD 15:47
PROVIDERS: ADMIT Internal Medicine; ATTEND Internal Medicine
DX: R07.89 Other chest pain (principal); K29.70 Gastritis, unspecified, without bleeding; F10.129 Alcohol abuse with intoxication, unspecified; F17.210 Nicotine dependence, cigarettes, uncomplicated; J44.9 Chronic obstructive pulmonary disease, unspecified; I10 Essential (primary) hypertension; G40.909 Epilepsy, unspecified, not intractable, without status epilepticus; M19.90 Unspecified osteoarthritis, unspecified site; K21.9 Gastro-esophageal reflux disease without esophagitis; R41.3 Other amnesia; F09 Unspecified mental disorder due to known physiological condition; F41.0 Panic disorder [episodic paroxysmal anxiety]; F31.9 Bipolar disorder, unspecified; R45.851 Suicidal ideations; Z82.49 Family history of ischemic heart disease and other diseases of the circulatory system; Z80.9 Family history of malignant neoplasm, unspecified; Z79.899 Other long term (current) drug therapy; Z88.0 Allergy status to penicillin; Z88.5 Allergy status to narcotic agent
CPT/HCPCS: 96374; 93005 ×2; 96372; 99285; 36415; 93306; 85379; 80061; 80053; 83690; 83735; 84484; 85025; 85610; 85730; 71046; G0378 ×3; G0480; S4990; J3411; C9113; 80320

== ENCOUNTER → 2020-10-03 | Outpatient (CLI) | payer MEDICARE ==
--- NOTE | 2020-10-07 11:24 | MM ---
Reason for exam: screening (asymptomatic). Last mammogram was performed 11 years and 4 months ago. History: Took hormonal contraceptives for 1 year beginning at age 18. Physical Findings: A clinical breast exam by your physician is recommended on an annual basis and results should be correlated with mammographic findings. MG 3D Screening Mammo W/Cad Bilateral CC and MLO view(s) were taken. No prior studies available for comparison. The breast tissue is heterogeneously dense. This may lower the sensitivity of mammography. Finding: There are typically benign coarse calcifications in the left breast. There is no discrete abnormality. ASSESSMENT: Benign, BI-RAD 2 RECOMMENDATION: Routine screening mammogram of both breasts in 1 year.
== END | disposition home or self-care (01) ==
LOC: RADMAMWWP 09:57
PROVIDERS: ATTEND Family Medicine
DX: Z12.31 Encounter for screening mammogram for malignant neoplasm of breast (principal)
CPT/HCPCS: 77063; 77067

== ENCOUNTER → 2024-02-29 | Outpatient (CLI) | payer MEDICARE ==
--- NOTE | 2024-02-29 09:07 | CTL ---
EXAMINATION TYPE: CT Low Dose Lung DATE OF EXAM ORDERED: 02/29/2024 HISTORY: . Low Dose CT Lung Screening CT DLP: 93.[address] CTDI: 2.5 mGy IV CONTRAST USED: None. SCREENING VISIT: First visit COMPARISON: None. TECHNIQUE: Low dose computed tomography scan was performed through the chest at 1 millimeter thick se ctions and reconstructed images in the coronal plane at [address] DIAGNOSTIC QUALITY: Satisfactory FINDINGS: LUNG NODULES: Not presentLeft lung: no nodules identified.Right lung: no nodules identified. LUNGS: COPD: Severity: Mild Fibrosis: Severity:None Lymph nodes: None Other findings: None RIGHT PLEURAL SPACE: Effusion: None Calcification: None Thickening: None Pneumothorax: None LEFT PLEURAL SPACE: Effusion: None Calcification: None Thickening: None Pneumothorax: None HEART: Heart Size: Mildly enlarged Coronary calcification: Mild Pericardial effusion: None OTHER FINDINGS: Upper abdomen: Small fixed hiatal hernia. Bony thorax: Degenerative changes Supraclavicular region: No significant abnormalityOther: No significant abnormalityI IMPRESSION: Concerning pulmonary nodules. FOLLOW UP CT CHEST RECOMMENDATION: Follow-up screening in one year CT LUNG RAD: LUNG RAD CATEGORY 1 negative
--- NOTE | 2024-02-29 14:03 | MM ---
Reason for Exam: Screening (asymptomatic). Last mammogram was performed 3 year(s) and 5 month(s) ago. Patient History: Menarche at age 14. First Full-Term at age 18. Perimenopausal. Hormonal Contraceptives for 1 year from age 18 until age 19. Risk Values: Bre 5 year model risk: 0.7%. NCI Lifetime model risk: 6.4%. Prior Study Comparison: 05/28/2009 Bilateral Screening Mammogram, [facility]. 06/03/2009 Left Diagnostic Mammogram, [facility]. 10/03/2020 Bilateral Screening Mammogram, [facility]. Tissue Density: The breasts are heterogeneously dense, which may obscure small masses. Findings: Analyzed By CAD. There is no suspicious group of microcalcifications or new suspicious mass in either breast. Overall Assessment: Negative, BI-RAD 1 Management: Screening Mammogram of both breasts in 1 year. . Patient should continue monthly self-breast exams. A clinical breast exam by your physician is recommended on an annual basis. This exam should not preclude additional follow-up of suspicious palpable abnormalities. Note on Bre scores and lifetime risk: 1. A Bre score greater than 3% is considered moderate risk. If this is the case, consider specialist referral to assess eligibility for a risk reducing agent. 2. If overall lifetime risk for the development of breast cancer is 20% or higher, the patient may qualify for future screening with alternating mammogram and breast MRI. Electronically signed and approved by: Omar Jose M.D. Radiologis
== END | disposition home or self-care (01) ==
LOC: RADCTMAIN 08:09
PROVIDERS: ATTEND Family Medicine
DX: Z12.31 Encounter for screening mammogram for malignant neoplasm of breast
CPT/HCPCS: 71271; 77063; 77067